=== PATIENT | male | born 1955 | race Caucasian/White ===

== ENCOUNTER 2018-03-14 08:16 | Inpatient (IN) | payer MEDICAID ==
[~2018-03-14] VITALS: Ht 180.3 cm; Wt 76.7 kg
[2018-03-14] VITALS (9 sets, daily range): BP systolic 102–120; BP diastolic 73–91; Ht 180.3 cm; Wt 76.7 kg
[2018-03-14 10:21] LABS: HEMATOCRIT 38.7 % (42.0-54.0); HEMOGLOBIN 13.1 g/dL (13.5-17.5); MCH 29.7 pg (26.0-34.0); MCHC 33.9 g/dL (31.0-37.0); MCV 87.8 fL (80.0-100.0); MEAN PLATELET VOLUME 10.2 fL (7.4-10.4); PLATELET COUNT 258 10x3/uL (130-400); RBC 4.41 10x6/uL (4.20-6.10); RDW 16.6 % (11.5-14.5); WBC 24.4 10x3/uL (4.8-10.8)
[2018-03-14 10:31] LABS: APTT 30.1 SECONDS (22.8-39.4); INR 1.01 (0.85-1.17); PROTIME 12.9 SECONDS (11.6-15.0)
[2018-03-14 10:34] LABS: ALBUMIN 2.4 g/dL (3.4-5.0); ANION GAP 13.5 mmol/L (8-16); BILIRUBIN - TOTAL 1.25 mg/dL (0.2-1.3); CALCIUM 8.3 mg/dL (8.5-10.1); CARBON DIOXIDE 24.3 mmol/L (21.0-32.0); CREATININE - SERUM 1.6 mg/dL (0.6-1.3); POTASSIUM - SERUM 4.8 mmol/L (3.5-5.1); PROTEIN - SERUM 5.8 g/dL (6.4-8.2)
[2018-03-14] MEDS ORDERED: NORVASC10 MG PO (10:51)
[2018-03-14] MEDS ORDERED: LIPITOR10 MG PO (10:52)
[2018-03-14] MEDS ORDERED: VASOTEC10 MG PO (10:53)
[2018-03-14] MEDS ORDERED: PRINIVIL20 MG PO (10:54)
[2018-03-14] MEDS ORDERED: NORCO 7.5/325 T1 TA1 PO (10:55)
[2018-03-14] MEDS ORDERED: BAYER CHEWABLE81 MG PO (10:56)
[2018-03-14 11:16] LABS: BASOPHILS 1 % (0-2); LYMPHOCYTES 12 % (15-50); MONOCYTES 7 % (2-11); NEUTROPHILS 80 % (40-80); PLATELET ESTIMATE NORMAL
[2018-03-14] MEDS ORDERED: ZYLOPRIM300 MG PO (11:16)
[2018-03-15 03:00] VITALS: BP 85/64
[2018-03-15 04:47] LABS: ALBUMIN 2.4 g/dL (3.4-5.0); ANION GAP 12.7 mmol/L (8-16); BILIRUBIN - TOTAL 0.79 mg/dL (0.2-1.3); CALCIUM 8.5 mg/dL (8.5-10.1); CARBON DIOXIDE 26.2 mmol/L (21.0-32.0); CREATININE - SERUM 1.8 mg/dL (0.6-1.3); POTASSIUM - SERUM 4.9 mmol/L (3.5-5.1); PROTEIN - SERUM 6.3 g/dL (6.4-8.2)
[2018-03-15 04:50] LABS: BASOPHILS 0 % (0-2); EOSINOPHILS 0 % (0-7); HEMATOCRIT 41.9 % (42.0-54.0); HEMOGLOBIN 14.3 g/dL (13.5-17.5); IMMATURE GRANULOCYTES 0.3 % (0-5); LYMPHOCYTES 2.9 % (15-50); MCH 29.9 pg (26.0-34.0); MCHC 34.1 g/dL (31.0-37.0); MCV 87.5 fL (80.0-100.0); MEAN PLATELET VOLUME 10.1 fL (7.4-10.4); MONOCYTES 3.4 % (2-11); NEUTROPHILS 93.4 % (40-80); PLATELET COUNT 255 10x3/uL (130-400); RBC 4.79 10x6/uL (4.20-6.10); RDW 16.8 % (11.5-14.5); WBC 25.2 10x3/uL (4.8-10.8)
[2018-03-15 10:00] VITALS: BP 91/69
[2018-03-15 14:46] VITALS: BP 92/71
[2018-03-15 20:00] VITALS: BP 90/60
[2018-03-16 04:27] VITALS: BP 100/76
[2018-03-16 09:19] VITALS: BP 97/67
[2018-03-16 16:31] VITALS: BP 90/64
[2018-03-16 21:44] VITALS: BP 90/66
[2018-03-17 04:09] VITALS: BP 98/65
[2018-03-17 08:27] VITALS: BP 92/67
[2018-03-17 09:55] LABS: BASOPHILS 0 % (0-2); EOSINOPHILS 0.1 % (0-7); HEMATOCRIT 31.9 % (42.0-54.0); HEMOGLOBIN 10.8 g/dL (13.5-17.5); IMMATURE GRANULOCYTES 0.4 % (0-5); LYMPHOCYTES 2.2 % (15-50); MCH 29.5 pg (26.0-34.0); MCHC 33.9 g/dL (31.0-37.0); MCV 87.2 fL (80.0-100.0); MEAN PLATELET VOLUME 10.6 fL (7.4-10.4); MONOCYTES 3.4 % (2-11); NEUTROPHILS 93.9 % (40-80); RBC 3.66 10x6/uL (4.20-6.10); WBC 16.9 10x3/uL (4.8-10.8)
[2018-03-17 09:57] LABS: PLATELET COUNT 140 10x3/uL (130-400)
[2018-03-17 10:09] LABS: ALBUMIN 1.5 g/dL (3.4-5.0); BILIRUBIN - TOTAL 0.74 mg/dL (0.2-1.3); CARBON DIOXIDE 23.7 mmol/L (21.0-32.0); CREATININE - SERUM 1.3 mg/dL (0.6-1.3); POTASSIUM - SERUM 3.7 mmol/L (3.5-5.1); PROTEIN - SERUM 3.9 g/dL (6.4-8.2)
[2018-03-17 10:21] LABS: CALCIUM 6.8 mg/dL (8.5-10.1)
[2018-03-17 13:32] VITALS: BP 93/66
[2018-03-17 17:31] LABS: BASOPHILS 0 % (0-2); EOSINOPHILS 0.2 % (0-7); HEMOGLOBIN 11.9 g/dL (13.5-17.5); IMMATURE GRANULOCYTES 0.3 % (0-5); MCH 29.5 pg (26.0-34.0); MCV 86.8 fL (80.0-100.0); MEAN PLATELET VOLUME 10.4 fL (7.4-10.4); MONOCYTES 3.4 % (2-11); NEUTROPHILS 94.1 % (40-80); PLATELET COUNT 157 10x3/uL (130-400); RBC 4.03 10x6/uL (4.20-6.10); RDW 16.7 % (11.5-14.5); WBC 17.6 10x3/uL (4.8-10.8)
[2018-03-17 18:34] VITALS: BP 104/76
[2018-03-17 19:12] LABS: ALBUMIN 1.8 g/dL (3.4-5.0); ANION GAP 9.7 mmol/L (8-16); BILIRUBIN - TOTAL 0.91 mg/dL (0.2-1.3); CALCIUM 8.3 mg/dL (8.5-10.1); CARBON DIOXIDE 28.5 mmol/L (21.0-32.0); CREATININE - SERUM 1.4 mg/dL (0.6-1.3); POTASSIUM - SERUM 4.2 mmol/L (3.5-5.1)
[2018-03-17 19:13] LABS: PROTEIN - SERUM 5.4 g/dL (6.4-8.2)
[2018-03-17 22:14] VITALS: BP 90/63
[2018-03-18 04:57] VITALS: BP 113/74
[2018-03-18 06:35] LABS: BASOPHILS 0 % (0-2); EOSINOPHILS 0.2 % (0-7); HEMATOCRIT 35.3 % (42.0-54.0); IMMATURE GRANULOCYTES 0.3 % (0-5); LYMPHOCYTES 2.5 % (15-50); MCH 29.6 pg (26.0-34.0); MCV 87.2 fL (80.0-100.0); MEAN PLATELET VOLUME 10.4 fL (7.4-10.4); MONOCYTES 3.3 % (2-11); NEUTROPHILS 93.7 % (40-80); PLATELET COUNT 155 10x3/uL (130-400); RBC 4.05 10x6/uL (4.20-6.10); RDW 16.8 % (11.5-14.5); WBC 16.3 10x3/uL (4.8-10.8)
[2018-03-18 06:51] LABS: ALBUMIN 1.8 g/dL (3.4-5.0); ANION GAP 12.2 mmol/L (8-16); BILIRUBIN - TOTAL 0.85 mg/dL (0.2-1.3); CARBON DIOXIDE 25.9 mmol/L (21.0-32.0); CREATININE - SERUM 1.4 mg/dL (0.6-1.3); POTASSIUM - SERUM 4.1 mmol/L (3.5-5.1); PROTEIN - SERUM 5.3 g/dL (6.4-8.2)
[2018-03-18 09:18] VITALS: BP 88/61
[2018-03-18 12:28] VITALS: BP 96/69
[2018-03-18 16:14] VITALS: BP 68/60
[2018-03-18 20:00] VITALS: BP 106/65
[2018-03-19 06:00] VITALS: BP 93/40
[2018-03-19 06:08] LABS: BASOPHILS 0 % (0-2); EOSINOPHILS 0.2 % (0-7); HEMATOCRIT 35.7 % (42.0-54.0); HEMOGLOBIN 12.1 g/dL (13.5-17.5); IMMATURE GRANULOCYTES 0.3 % (0-5); LYMPHOCYTES 1.6 % (15-50); MCH 29.8 pg (26.0-34.0); MCHC 33.9 g/dL (31.0-37.0); MCV 87.9 fL (80.0-100.0); MONOCYTES 5.5 % (2-11); NEUTROPHILS 92.4 % (40-80); RBC 4.06 10x6/uL (4.20-6.10); RDW 16.6 % (11.5-14.5); WBC 14.2 10x3/uL (4.8-10.8)
[2018-03-19 06:29] LABS: ALBUMIN 1.9 g/dL (3.4-5.0); ANION GAP 13.6 mmol/L (8-16); BILIRUBIN - TOTAL 0.86 mg/dL (0.2-1.3); CALCIUM 8.2 mg/dL (8.5-10.1); CARBON DIOXIDE 26.4 mmol/L (21.0-32.0); CREATININE - SERUM 1.5 mg/dL (0.6-1.3); PLATELET COUNT 205 10x3/uL (130-400); PROTEIN - SERUM 5.4 g/dL (6.4-8.2)
[2018-03-19 08:17] VITALS: BP 130/72
[2018-03-19 13:47] VITALS: BP 94/67
[2018-03-19 22:11] VITALS: BP 152/92
[2018-03-20 04:12] VITALS: BP 85/65
[2018-03-20 06:02] LABS: BASOPHILS 0 % (0-2); EOSINOPHILS 0.2 % (0-7); HEMATOCRIT 36.4 % (42.0-54.0); HEMOGLOBIN 12.3 g/dL (13.5-17.5); IMMATURE GRANULOCYTES 0.2 % (0-5); LYMPHOCYTES 2.1 % (15-50); MCH 29.5 pg (26.0-34.0); MCHC 33.8 g/dL (31.0-37.0); MCV 87.3 fL (80.0-100.0); MEAN PLATELET VOLUME 10.4 fL (7.4-10.4); MONOCYTES 5.7 % (2-11); NEUTROPHILS 91.8 % (40-80); PLATELET COUNT 223 10x3/uL (130-400); RBC 4.17 10x6/uL (4.20-6.10); RDW 16.5 % (11.5-14.5); WBC 13.1 10x3/uL (4.8-10.8)
[2018-03-20 06:22] LABS: ANION GAP 12.3 mmol/L (8-16); BILIRUBIN - TOTAL 0.78 mg/dL (0.2-1.3); CALCIUM 8.4 mg/dL (8.5-10.1); CARBON DIOXIDE 24.7 mmol/L (21.0-32.0); CREATININE - SERUM 1.5 mg/dL (0.6-1.3); PROTEIN - SERUM 5.5 g/dL (6.4-8.2)
[2018-03-20 09:23] VITALS: BP 95/67
[2018-03-20 12:25] VITALS: BP 93/60
[2018-03-20 17:02] VITALS: BP 94/58
[2018-03-20 21:08] VITALS: BP 98/65
== END 2018-03-20 23:50 | disposition home health service (06) | DRG 377 ==
LOC: D.ER 08:16 → D.EDHOLD 08:30 → D.MS 08:30 → D.ICU 08:45 → D.MS 03-15 11:26
PROVIDERS: Family Medicine; Internal Medicine Gastroenterology; Internal Medicine Nephrology
PROC: 0DD78ZX Extraction of Stomach, Pylorus, Via Natural or Artificial Opening Endoscopic, Diagnostic (ICD-10-PCS; 2018-03-14)
PROC: 0DD98ZX Extraction of Duodenum, Via Natural or Artificial Opening Endoscopic, Diagnostic (ICD-10-PCS; principal; 2018-03-14 11:26)
DX: K29.61 Other gastritis with bleeding (principal); E43 Unspecified severe protein-calorie malnutrition; D62 Acute posthemorrhagic anemia; C82.93 Follicular lymphoma, unspecified, intra-abdominal lymph nodes; I31.3 Pericardial effusion (noninflammatory); N17.9 Acute kidney failure, unspecified; F17.203 Nicotine dependence unspecified, with withdrawal; R18.8 Other ascites; M62.50 Muscle wasting and atrophy, not elsewhere classified, unspecified site; K92.0 Hematemesis; K21.0 Gastro-esophageal reflux disease with esophagitis